=== PATIENT | male | born 1990 | race Caucasian/White ===

== ENCOUNTER → 2017-05-16 | Outpatient (CLI) | payer OTHER ==
[~2017-05-16] MED LIST: MELO15TA4 PO; PROZ40CA PO; TRAZ50TA11 PO; vitamin D
--- NOTE | 2017-05-17 13:20 | REP ---
RIGHT SECOND DIGIT: Four views of the right second digit are performed and demonstrate no fracture, dislocation or intrinsic bone disease. No radiopaque foreign body is seen in the soft tissues. Signed by Eddi Haile MD 05/17/2017 07:03 P
== END ==
LOC: M WUC 17:15
PROVIDERS: ATTEND Physician Assistant
DX: S61.20 Unspecified open wound of other finger without damage to nail (principal); W18.30XA Fall on same level, unspecified, initial encounter; Y92.009 Unspecified place in unspecified non-institutional (private) residence as the place of occurrence of the external cause

== ENCOUNTER → 2017-05-26 | Outpatient (REF) ==
--- NOTE | 2017-05-26 10:58 | REP ---
STANDING AP VIEW OF BOTH KNEES: SINGLE VIEW. HISTORY: Right knee pain. Comparison right knee radiographs are from February 08, 2008. FINDINGS: Standing AP view of both knees shows no evidence of joint space narrowing. Bones, joints, and soft tissues are unremarkable. IMPRESSION: Negative standing AP view of both knees. Signed by Jorge Mccollum MD 05/26/2017 03:29 P
--- NOTE | 2017-05-26 10:59 | REP ---
RIGHT KNEE SERIES: FIVE VIEWS. HISTORY: Right knee pain. Comparison right knee radiographs are from February 08, 2008. FINDINGS: Five views of the right knee demonstrate normal bones, joints, and soft tissues. No evidence of arthropathy or joint effusion. No fracture or erosive change seen. IMPRESSION: Negative right knee radiographs. Signed by Jorge Mccollum MD 05/26/2017 03:29 P
== END ==
LOC: M RAD 09:34
PROVIDERS: ATTEND Physician Assistant
DX: M25.561 Pain in right knee (principal)

== ENCOUNTER 2017-07-07 12:32 | Emergency (ER) | payer OTHER ==
[~2017-07-07] VITALS: Ht 180.3 cm; Wt 68.1 kg
[2017-07-07] MEDS ORDERED: vitamin D (12:50)
[2017-07-07] MEDS ORDERED: TRAZ50TA11 PO (12:50)
[2017-07-07] MEDS ORDERED: MELO15TA4 PO (12:50)
[2017-07-07] MEDS ORDERED: PROZ40CA PO (12:50)
[2017-07-07 13:20] LABS: MEAN CORPUSCULAR HEMOGLOBIN 28.6 pg (27.0-33.0); MEAN CORPUSCULAR HGB CONC 33.9 g/dl (32.0-36.5); MEAN CORPUSCULAR VOLUME 84.4 fl (80.0-96.0); PLATELET COUNT, AUTOMATED 221 10^3/uL (150-450); RED CELL DISTRIBUTION WIDTH 12.1 % (11.5-14.5); WHITE BLOOD COUNT 3.5 10^3/uL (4.0-10.0)
[2017-07-07 13:43] LABS: METHADONE URINE NEGATIVE (NEGATIVE)
[2017-07-07 13:50] LABS: ALBUMIN 4.5 GM/DL (3.2-5.2); ALBUMIN/GLOBULIN RATIO 1.55 (1.00-1.93); ALKALINE PHOSPHATASE 60 U/L (45-117); ALT/SGPT 42 U/L (12-78); ANION GAP 8 MEQ/L (8-16); AST/SGOT 24 U/L (7-37); BILIRUBIN,DIRECT 0.2 MG/DL (0.0-0.2); BILIRUBIN,TOTAL 0.7 MG/DL (0.2-1.0); BLOOD UREA NITROGEN 13 MG/DL (7-18); CALCIUM LEVEL 9.4 MG/DL (8.5-10.1); CARBON DIOXIDE LEVEL 25 MEQ/L (21-32); CHLORIDE LEVEL 106 MEQ/L (98-107); CREATININE FOR GFR 1.11 MG/DL (0.70-1.30); GLOMERULAR FILTRATION RATE > 60.0 (>60); GLUCOSE, FASTING 94 MG/DL (70-105); POTASSIUM SERUM 4.2 MEQ/L (3.5-5.1); SODIUM LEVEL 139 MEQ/L (136-145); TOTAL PROTEIN 7.4 GM/DL (6.4-8.2)
[2017-07-07 21:39] VITALS: BP 130/73
--- NOTE | 2017-07-08 14:13 | ECGEPIP ---
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
== END 2017-07-07 21:45 ==
LOC: M ED 12:32
DX: R45.851 Suicidal ideations (principal); Z91.5 Personal history of self-harm; G89.29 Other chronic pain; F17.200 Nicotine dependence, unspecified, uncomplicated; Z79.899 Other long term (current) drug therapy
CPT/HCPCS: 80048; 80076; 80307; 84443; 85027; 93005; 99285; G0480

== ENCOUNTER → 2019-09-21 | Outpatient (CLI) | payer OTHER ==
[~2019-09-21] MED LIST changes: +MELO15TA28 PO; -MELO15TA4 PO; +TRAZ-252 PO; -TRAZ50TA11 PO
--- NOTE | 2019-09-21 19:55 | REP ---
CAROTID DUPLEX ULTRASOUND: 09/21/2019. Clinical history: Episodes of dizziness. Findings: There are no prior studies in this 29-year-old. I see no intimal thickening or significant plaque in the right common carotid artery. Trace amounts of soft plaque at the bulb and proximal ICA. No calcific plaque. The left common carotid artery is also without intimal thickening or soft plaque. The bulb shows trace amounts of soft plaque. There is some in the proximal ICA. Peak velocities: Right Left CCA systolic 1.03 m/s 1.1 m/s ICA systolic 0.68 m/s 0.76 m/s ICA diastolic 0.29 m/s 0.33 m/s ECA systolic 0.80 m/s 0.66 m/s IC/CC ratio 0.68 0.73 Antegrade flow is seen in both vertebral arteries. The Doppler waveform analysis shows no spectral broadening or filling of the systolic window for either internal carotid. Impression: 1. Trace amounts of soft plaque with no hemodynamically significant or flow restricting lesion in the internal carotids. 2. Cranial directional flow vertebral arteries. Electronically Signed by Bo Kolb MD 09/21/2019 08:30 P
== END ==
LOC: M RAD 16:35
PROVIDERS: ATTEND Physician Assistant Medical
DX: R42 Dizziness and giddiness (principal)

== ENCOUNTER → 2022-05-14 | Outpatient (REF) | LOC: M RAD 15:05 | PROVIDERS: ATTEND Physician Assistant Medical | DX: M54.50 Low back pain, unspecified (principal) ==